=== PATIENT | male | born 1960 | race Two or more races ===

== ENCOUNTER 2019-11-14 10:02 | Emergency (ER) | payer OTHER ==
[~2019-11-14] VITALS: Ht 175.3 cm; Wt 118.0 kg
[2019-11-14 10:09] VITALS: BP 134/83
[2019-11-14] MEDS ORDERED: ERYTHROMYCIN BASE 0.5% OPHTH OINT 3.5GM LEFTEYE ONE (11:15)
== END 2019-11-14 11:33 | disposition home or self-care (01) ==
LOC: ER 10:02
DX: H00.014 Hordeolum externum left upper eyelid (principal); E11.9 Type 2 diabetes mellitus without complications; Z88.0 Allergy status to penicillin
CPT/HCPCS: 99283

== ENCOUNTER 2021-07-07 15:17 | Emergency (ER) | payer OTHER ==
[~2021-07-07] VITALS: Ht 180.3 cm; Wt 125.0 kg
[2021-07-07 15:21] VITALS: BP 159/103
[2021-07-07] MEDS ORDERED: BACITRACIN ZINC OINT UDPKT TOP ONE (15:30)
[2021-07-07] MEDS ORDERED: LIDOCAINE HCL/PF 1% 10 MG/ML 5ML VIAL INFIL ONE (15:30)
[2021-07-07] MEDS ORDERED: ACETAMINOPHEN 325MG TABLET PO ONE (15:30)
[2021-07-07] MEDS ORDERED: LIDOCAINE HCL 1% 10 MG/ML 10ML VIAL IJ NR (16:00)
[2021-07-07] MEDS: LIDOCAINE HCL/EPINEPHRINE 1%-EPI 1:100,000 10 ML VIAL INFIL NR ×2 (16:29→16:31)
== END 2021-07-07 19:24 | disposition home or self-care (01) ==
LOC: ER 15:17
DX: S61.012A Laceration without foreign body of left thumb without damage to nail, initial encounter (principal); E11.9 Type 2 diabetes mellitus without complications; Z88.0 Allergy status to penicillin; Z98.890 Other specified postprocedural states; W45.8XXA Other foreign body or object entering through skin, initial encounter; Y93.89 Activity, other specified; Y92.89 Other specified places as the place of occurrence of the external cause; Y99.8 Other external cause status
CPT/HCPCS: 99282; J3490; Z7610

== ENCOUNTER 2021-12-17 17:21 | Emergency (ER) | payer OTHER ==
[~2021-12-17] VITALS: Ht 177.8 cm; Wt 127.0 kg
[2021-12-17] MEDS ORDERED: KETOROLAC 30MG/ML VIAL IM ONE (21:00)
[2021-12-17] MEDS ORDERED: HYDR-4001 MT (21:32)
[2021-12-17 21:38] VITALS: BP 138/84
== END 2021-12-17 21:40 | disposition home or self-care (01) ==
LOC: ER 17:21
DX: S52.592A Other fractures of lower end of left radius, initial encounter for closed fracture (principal); W18.39XA Other fall on same level, initial encounter; Y93.89 Activity, other specified; Y92.89 Other specified places as the place of occurrence of the external cause; Y99.8 Other external cause status; E11.9 Type 2 diabetes mellitus without complications; Z88.0 Allergy status to penicillin
CPT/HCPCS: 29125; 73100; 73120; 96372; 99284; J1885

== ENCOUNTER 2024-05-18 17:54 | Emergency (ER) | payer SELFPAY ==
[~2024-05-18] VITALS: Ht 175.3 cm; Wt 122.4 kg
[~2024-05-18 17:54] MED LIST: HYDR-4001 MT
[2024-05-18 18:28] VITALS: O2SAT 98
[2024-05-18 18:36] VITALS: BP 136/80; PULSE 79; RESP 20; TEMP 98.4; O2SAT 96
== END 2024-05-19 00:12 | disposition left against medical advice (07) ==
LOC: ER 17:54
DX: R06.02 Shortness of breath (principal); Z53.21 Procedure and treatment not carried out due to patient leaving prior to being seen by health care provider